=== PATIENT | female | born 1950 | race Hispanic/Latino ===

== ENCOUNTER 2019-03-04 11:32 | Emergency (ER) | payer OTHER ==
[~2019-03-04] VITALS: Ht 165.1 cm; Wt 108.9 kg
--- OUTSIDE RECORDS SUMMARY | 2019-03-04 11:36 | XMS REPORT | Summary of Care ---
Author Author [facility] Organization [facility] Address Unknown Phone Unavailable Care Team Providers Care Galvanizer Name Role Phone Adair Pryor PCP Rx, Pulmonary 34 Reason for Referral * Consult, Test & Treat (Routine) Referred By Contact Referred To Contact Status Reason Specialty Diagnoses / [place] [address] [place] [id number] Pending Orthopedic Diagnoses Surgery Primary osteoarthritis of right knee P rocedures GEL ONE PROC INJ Reason for Visit * Reason Comments Follow Up Right knee Encounter Details Care Team Description Date Type Department Leonidas Azevedo MD [address] [id number] Follow Up (Right knee ) 01/25/2019 Office Visit [facility] Orthopedic Surgery [address] [place] [address]. [address] [place], [place] [address] Allergies No Known Allergiesdocumented as of this encounter (statuses as of 01/25/2019) Medications End Date Status Medication Sig Dispensed Refills Start Date Active Multiple Take by 0 Vitamins-Minerals (WOMENS mouth. 50+ MULTI VITAMIN/MIN OR)Indications: Type II or unspecified type diabetes mellitus with peripheral circulatory disorders, not stated as uncontrolled(250.70), Hypertension, Hyperlipidemia Active Biotin 1000 MCG TABS Take by 0 mouth. Active omeprazole (PRILOSEC) 40 Take 40 mg by 0 MG capsule mouth daily. Active nortriptyline (PAMELOR) every 7 days. 0 10 MG capsule 7 Active metoprolol (TOPROL-XL) 25 TAKE 1 TABLET 90 Tab 3 MG XL tablet BY MOUTH 8 EVERY DAY Active Insulin Pen Needle 31G X Use with 200 Each 5 5 MM MISC insulin 2x 8 daily; DX E11.9 Active metformin (GLUCOPHAGE) TAKE 1 TABLET 180 Tab 2 1000 MG tablet BY MOUTH 8 TWICE A DAY WITH MEALS Active BASAGLAR KWIKPEN 100 Inject 20 45 mL 1 UNIT/ML SOPN Units into 8 the skin at bedtime. Active VICTOZA 18 MG/3ML SOPN INJECT 1.8 MG 3 Pen 3 INTO THE SKIN 8 DAILY. Active levothyroxine (SYNTHROID) TAKE 1 TABLET 90 Tab 1 50 MCG tablet BY MOUTH 8 EVERY DAY IN THE MORNING Active Hyaluronan (HYMOVIS) 24 Inject 3 mL 6 mL 0 MG/3ML injection into the 8 articular space every 7 days. Active Glucose Blood Strips TEST 3 TIMES 300 Strip 2 (ONETOUCH VERIO) A DAY; Dx 9 E11.9 - .curtesy refill - No further refill will be given with our an appointment Active irbesartan-hydrochlorothi TAKE 1 TABLET 90 Tab 3 azide (AVALIDE) 150-12.5 BY MOUTH 9 MG per tabletIndications: EVERY DAY Essential hypertension Active rosuvastatin (CRESTOR) 10 TAKE 1 TABLET 90 Tab 3 MG tabletIndications: BY MOUTH 9 Hyperlipidemia, EVERY DAY unspecified hyperlipidemia type Active amlodipine (NORVASC) 10 TAKE 1 TABLET 90 Tab 3 MG tabletIndications: BY MOUTH 9 Hyperlipidemia, EVERY DAY unspecified hyperlipidemia type Active olmesartan-hydrochlorothi TAKE 1 TABLET 30 Tab 6 azide (BENICAR HCT) BY MOUTH 9 40-12.5 MG per EVERY DAY tabletIndications: Essential hypertension Active erythromycin opth erythromycin 0 (ROMYCIN) ophthalmic 5 mg/gram ointment (0.5 %) eye ointment APPLY 4 TIMES PER DAY FOR 7 DAYS 1CM RIBBON IN AFFECTED EYE Active fluconazole (DIFLUCAN) fluconazole 0 150 MG tablet 150 mg tablet TAKE 1 TABLET ONE DOSE REPEAT DOSE IN 5-7 DAYS Active nystatin-triamcinolone nystatin-tria 0 (MYCOLOG II) cream mcinolone 100,000 unit/g-0.1 % topical cream Active nystatin-triamcinolone nystatin-tria 0 (MYCOLOG) ointment mcinolone 100,000 unit/gram-0.1 % topical ointment APPLY TO AFFECTED AREA TWICE A DAY Active meloxicam (MOBIC) 15 MG meloxicam 15 0 tablet mg tablet documented as of this encounter (statuses as of 01/25/2019) Active Problems Problem Noted Date Complete tear of left rotator cuff 12/01/2016 Complete tear of right rotator cuff 12/01/2016 Dyslipidemia 07/31/2016 Hypothyroidism (acquired) 04/04/2016 Mixed stress and urge urinary incontinence 09/04/2015 Primary osteoarthritis of right knee 07/03/2015 Keratosis seborrheica 03/16/2013 Diabetes mellitus (HCCode) Iron deficiency anemia documented as of this encounter (statuses as of 01/25/2019) Resolved Problems Problem Noted Date Resolved Date Hypertension 07/31/2016 Hyperlipidemia 07/31/2016 documented as of this encounter (statuses as of 01/25/2019) Immunizations Name Administration Dates Next Due Influenza (whole) 01/16/2016, 01/15/2015, 01/30/2014, 02/24/2010 Influenza Quad-PF 01/13/2017 Influenza Quadrivalent 01/25/2018 3YRS+ Pneumococcal 02/21/2016 02/19/2017 Polysaccharide documented as of this encounter Social History Date Tobacco Use Types Packs/Day Years Used Never Smoker Smokeless Tobacco: Never Used Drinks/Week oz/Week Comments Alcohol Use No Sex Assigned at Date Recorded Not on file Industry Job Start Date Occupation Not on file Not on file Not on file Travel End Travel History Travel Start No recent travel history available. documented as of this encounter Last Filed Vital Signs Reading Time Taken Comments Vital Sign - - Blood Pressure - - Pulse - - Temperature - - Respiratory Rate - - Oxygen Saturation - - Inhaled Oxygen Concentration 102.1 kg (225 lb) 01/25/2019 8:23 AM CDT Weight 160 cm (5' 3") 01/25/2019 8:23 AM CDT Height 39.86 01/25/2019 8:23 AM CDT Body Mass Index documented in this encounter Progress Notes * Leonidas Azevedo MD - 01/25/2019 8:00 AM CDT Miladys Arellano is a 68 y.o. female who comes in for follow up re R knee. Know n OA, responded well to last ZURITA, now w recurrent pain. Last ZURITA was Feb 2018, so almost 1 year of response. Prior PT. Prior CSIs. Prev had right knee injection (synvisc one) with inflammat ory response. She understands knee will likely need more tx in future, affecting ADLs / mobili ty more. Father had B TKAs. Past Medical History has a past medical history of Anemia (2010), Diabetes me llitus (HCCode), Diverticulitis of colon (without mention of hemorrhage)(562.11) , Esophageal reflux, GERD (gastroesophageal reflux disease), Hyperlipidemia, Hyp ertension, Hypothyroid, Iron deficiency anemia, and Thyroid disorder. She also h as no past medical history of Abnormal Pap smear of cervix, Anxiety, Asthma, Aut oimmune disease (HCCode), Bleeding disorder (HCCode), Breast cancer (HCCode), Br east lump, Calculus of kidney, Cardiac dysrhythmia, unspecified, Cataract, Cervi marina cancer (HCCode), Circulatory disorder, Cirrhosis (HCCode), Colon cancer (HCC ode), COPD (chronic obstructive pulmonary disease) (HCCode), Crohn's disease (HC Code), Depression, Ear disorder, Glaucoma, Hearing loss, Heart attack (HCCode), Hepatitis, unspecified, Human immunodeficiency virus (HIV) disease (HCCode), Kid luis disease, Migraine, Murmur, cardiac, Osteoarthritis, Osteopenia, Osteoporosis , Peripheral arterial disease (HCCode), Prostate cancer (HCCode), Prostate disor matt, Rectal bleeding, Recurrent UTI, Rheumatoid arthritis(714.0), Seasonal aller gic rhinitis, Seizure disorder (HCCode), Stroke (HCCode), TIA (transient ischemi c attack), Transfusion history, Upper GI bleed, or Varicose veins. Hospitalizations and Surgeries: has a past surgical history that includes hx t ah and bso; hx sterilization (1982); hx hysterectomy w/oophorectomy (1986); and HX Shoulder arthroscopy (Left, 04/22/2017). Review of Systems: Positive for shoulder pain; review of the other 9 systems are noncontributory as related to the patient's chief complaint The patient is alert, conversant, and oriented to person/location/date and time. Knee: Intact, warm, no discoloration Trace effusion 0-0-110 vs 0-0-120 L No pain through ROM Faint crepitation Soft compartments Mild diffuse TTP, max TTP MFC and MJL Intact motor/sens Imaging 4 views knee show varus tricompartmental OA, advanced, progressing Impression/Plan R knee OA I reviewed knee arthritis with the patient. We discussed conservative/nonoperative treatment including: Activity modifications Weight mgment - gave her Dr Blake info and discussed wt loss planning w her Medications Physical therapy and/or home exercise progam Assistive device(s) Injections: corticosteroids, viscosupplementation - will reorder We also discussed surgery Knee arthroplasty explained and good known terminal manager results explained Discussed postop recovery Questions were solicited and answered. Plan: Order ZURITA HEP Wt loss Likely more discussion re TKA in future documented in this encounter Plan of Treatment Order Schedule Name Type Priority Associated Diagnoses 1 Occurrences starting 01/25/2019 until 01/26/2020 GEL ONE PROC INJ Procedures Routine Primary osteoarthritis of right knee Health Maintenance Due Date Last Done Comments TETANUS SHOT (ADULT) 10/11/1966 BMI FOLLOW UP PLAN 10/11/1969 HEPATITIS C SCREENING 10/11/1969 MAMMOGRAM ANNUAL 08/26/2016 08/27/2015, 07/25/2015, 07/17/2015, Additional history exists OSTEOPOROSIS SCREENING 10/11/2016 10/05/2016 PNEUMOVAX >=65 (PPSV23) 10/11/2016 02/21/2016 PREVNAR >=65 (PCV13) 10/11/2016 A1C TESTING EVERY 6 06/15/2018 12/13/2017, 12/08/2016, 02/26/2016, MONTHS Additional history exists FLU VACCINE > 6 MONTHS 11/24/2018 01/25/2018, 01/13/2017, 01/16/2016, Additional history exists ANNUAL DIABETIC FOOT EXAM 12/13/2018 12/13/2017 ANNUAL DIABETIC 12/28/2018 12/28/2017, 10/06/2016, 06/28/2015, RETINOPATHY SCREENING Additional history exists FALL SCREEN 01/26/2020 01/25/2019 COLON CANCER SCREENIN02/20/2021 02/21/2016 COLONOSCOPY documented as of this encounter Results Not on filedocumented in this encounter Visit Diagnoses Diagnosis Primary osteoarthritis of right knee - Primary Primary localized osteoarthrosis, lower leg documented in this encounter Insurance Type Payer Benefit Subscriber ID Effective Phone Address Plan / Dates Group EPO [employer] EPO xxxxxxxxx 2015 [address] [place] -[place] [address] [place] [address] documented as of this encounter
--- OUTSIDE RECORDS SUMMARY | 2019-03-04 11:36 | XMS REPORT ---
Author Author [facility] Address Unknown Phone Unavailable Care Team Providers Care Cat Operator Name Role Phone JOSÉ MIGUEL HOWARD Unavailable Unavailable Problems This patient has no known problems. Allergies, Adverse Reactions, Alerts This patient has no known allergies or adverse reactions. Medications This patient has no known medications. Results Test Description Test Time Test Comments Text Results Atomic Results Result Comments POCT-GLUCOSE METER 2017-04-22 14:45:00 POC-GLUCOSE METER (BEAKER) (test tjua=1986) 166 mg/dL 70-110 TESTED AT [address] [address] POCT-GLUCOSE [id number] 11:01:00* Test Item Value Reference Range Comments POC-GLUCOSE METER (BEAKER) (test gbrv=4413) 213 mg/dL 70-110 TESTED AT [address] [address] POCT-GLUCOSE [id number] 07:48:00* Test Item Value Reference Range Comments POC-GLUCOSE METER (BEAKER) (test iloa=2195) 262 mg/dL 70-110 TESTED AT [address] [address] [id number] 09:49:00* Test Item Value Reference Range Comments SODIUM (BEAKER) (test yjiv=668) 143 meq/L 136-145 POTASSIUM (BEAKER) (test zexf=295) 4.4 meq/L 3.5-5.1 CHLORIDE (BEAKER) (test dxix=937) 104 meq/L 98-107 CO2 (BEAKER) (test zmxj=625) 29 meq/L 22-29 [id number] 09:49:00* Test Item Value Reference Range Comments GLUCOSE RANDOM (BEAKER) (test ndjc=860) 277 mg/dL 70-105 BUN AND [id number] 09:49:00* Test Item Value Reference Range Comments BLOOD UREA NITROGEN (BEAKER) (test ajyh=783) 16 mg/dL 7-21 CREATININE (BEAKER) (test ohiw=411) 0.79 mg/dL 0.57-1.25 EGFR (BEAKER) (test njry=8264) 73 mL/min/1.73 sq m ESTIMATED GFR IS NOT ACCURATE CREATININE CLEARANCE IN PREDICTING GLOMERULAR FILTRATION RATE. ESTIMATED GFR IS NOT APPLICABLE FOR DIALYSIS PATIENTS. [id number] 09:10:00* Test Item Value Reference Range Comments HEMOGLOBIN (BEAKER) (test kcqu=311) 14.4 GM/DL 11.2-15.7 POCT-GLUCOSE [id number] 10:07:00* Test Item Value Reference Range Comments POC-GLUCOSE METER (BEAKER) (test vlvn=7408) 181 mg/dL 70-110 TESTED AT [facility] [address] [place] [address] BASIC METABOLIC [id number] 15:52:00* Test Item Value Reference Range Comments SODIUM (BEAKER) (test lada=641) 142 meq/L 136-145 POTASSIUM (BEAKER) (test karo=317) 4.3 meq/L 3.5-5.1 Specimen slightly hemolyzed CHLORIDE (BEAKER) (test xigp=009) 103 meq/L 98-107 CO2 (BEAKER) (test mdaa=999) 29 meq/L 22-29 BLOOD UREA NITROGEN (BEAKER) (test rurt=272) 18 mg/dL 7-21 CREATININE (BEAKER) (test rqll=074) 0.72 mg/dL 0.57-1.25 Specimen slightly hemolyzed GLUCOSE RANDOM (BEAKER) (test rcnp=929) 129 mg/dL 70-105 CALCIUM (BEAKER) (test ypuq=646) 9.8 mg/dL 8.4-10.2 EGFR (BEAKER) (test gkae=6909) 81 mL/min/1.73 sq m ESTIMATED GFR IS NOT ACCURATE CREATININE CLEARANCE IN PREDICTING GLOMERULAR FILTRATION RATE. ESTIMATED GFR IS NOT APPLICABLE FOR DIALYSIS PATIENTS. [id number] 15:34:00* Test Item Value Reference Range Comments HEMOGLOBIN (BEAKER) (test kkjc=324) 14.5 GM/DL 11.2-15.7
--- OUTSIDE RECORDS SUMMARY | 2019-03-04 11:36 | XMS REPORT | Summary of Care ---
Author Author [facility] Organization [facility] Address Unknown Phone Unavailable Care Team Providers Care Pourer Crane Ladle Name Role Phone Konstantin Adair R PCP Rx, Pulmonary 34 Reason for Referral * Test (Routine) Referred By Contact Referred To Contact Status Reason Specialty Diagnoses / Procedures Shayan Lind MD [address] [place] [id number] E-Auth Not Consult, Test, and Cardiology Diagnoses Needed Treat Diabetes mellitus without complication (HCCode) LOPEZ (dyspnea on exertion) Palpitations Dyslipidemia w/ echo P rocedures EXTENDED HOLTER MONITOR (CONTINUOUS >48) * Radiology Services (Routine) Referred By Contact Referred To Contact Status Reason Specialty Diagnoses / Procedures Shayan Lind MD [address] [place] [phone] E-Auth Not Cardiology Diagnoses Needed Diabetes mellitus without complication (HCCode) LOPEZ (dyspnea on exertion) Palpitations Dyslipidemia w/ monitor P rocedures ECHO, COMPLETE Reason for Visit * Reason Comments Cardiology Follow-up Refill Encounter Details Care Team Description Date Type Department Shayan Lind MD [address] [place] [address] Cardiology Follow-up; Refill 02/09/2019 Office Visit [facility] Cardiology [address] [place] [phone] Allergies No Known Allergiesdocumented as of this encounter (statuses as of 02/09/2019) Medications End Date Status Medication Sig Dispensed [...] MG meloxicam 15 0 tablet mg tablet Active Insulin Aspart (NOVOLOG Inject into 0 SC) the skin. Active VITAMIN D OR Take 2,000 mg 0 by mouth daily. documented as of this encounter (statuses as of 02/09/2019) Active Problems Problem Noted Date Complete tear of left rotator cuff 12/01/2016 Complete tear of right rotator cuff 12/01/2016 Dyslipidemia 07/31/2016 Hypothyroidism (acquired) 04/04/2016 Mixed stress and urge urinary incontinence 09/04/2015 Primary osteoarthritis of right knee 07/03/2015 Keratosis seborrheica 03/16/2013 Diabetes mellitus (HCCode) Iron deficiency anemia documented as of this encounter (statuses as of 02/09/2019) Resolved Problems Problem Noted Date Resolved Date Hypertension 07/31/2016 Hyperlipidemia 07/31/2016 documented as of this encounter (statuses as of 02/09/2019) Immunizations Name Administration Dates Next Due Influenza [...] Signs Reading Time Taken Comments Vital Sign 158/90 02/09/2019 9:28 AM CDT did not take b/p meds this AM Blood Pressure 88 02/09/2019 9:28 AM CDT Pulse - - Temperature 16 02/09/2019 9:28 AM CDT Respiratory Rate 96% 02/09/2019 9:28 AM CDT Oxygen Saturation - - Inhaled Oxygen Concentration 109.3 kg (241 lb) 02/09/2019 9:28 AM CDT Weight 160 cm (5' 3") 02/09/2019 9:28 AM CDT Height 42.69 02/09/2019 9:28 AM CDT Body Mass Index documented in this encounter Progress Notes * Shayan Lind MD - 02/09/2019 9:30 AM CDT Chief Complaint Cardiology Follow-up and Refill History of Presenting Illness Miladys Arellano is a 68 y.o. female with several medical issues who returns fo follow-up evaluation. The patient is diabetic. She states that her hemoglobi n A1c's have been in the 7 range. She does have problems with weight control. She is currently 5 feet 3 inches tall and weighs 241 pounds. She did have an ep isode of palpitations which occurred at rest. The episode was approximately 20 minutes. The patient did not faint. She did not have chest pain suggestive of ischemia. She is relatively physically active and works full-time. The patient does not smoke. She denies palpitations. [facility] but she did not take her medications. The patient currently is managed with irbesartan HCTZ (150/12.5). Additionally, she is on metoprolol. [facility] patient has no history of DVT or hyperthyroidism (per she is on low dose Synt hroid at 50 g per day).. Review of Systems ROS Past Medical History Past Medical History: Diagnosis Date Anemia 2011 Diabetes mellitus (HCCode) Diverticulitis of colon (without mention of hemorrhage)(562.11) Esophageal reflux GERD (gastroesophageal reflux disease) Hyperlipidemia Hypertension Hypothyroid Iron deficiency anemia Thyroid disorder Past Surgical History Past Surgical History: Procedure Laterality Date HX HYSTERECTOMY W/OOPHORECTOMY 1986 HX SHOULDER ARTHROSCOPY Left 04/22/2017 Left shoulder RCR, BT HX STERILIZATION 1982 HX BRYSON AND BSO fibroids Family History Family History Problem Relation Name Age of Onset Skin Cancer Neg Hx Current Outpatient Medications Current Outpatient Medications Medication Sig Dispense Refill amlodipine (NORVASC) 10 MG tablet TAKE 1 TABLET BY MOUTH EVERY DAY 90 Tab 3 BASAGLAR KWIKPEN 100 UNIT/ML SOPN Inject 20 Units into the skin at bedtime. 45 mL 1 Biotin 1000 MCG TABS Take by mouth. erythromycin opth (ROMYCIN) ophthalmic ointment erythromycin 5 mg/gram (0.5 %) eye ointment APPLY 4 TIMES PER DAY FOR 7 DAYS 1CM RIBBON IN AFFECTED EYE fluconazole (DIFLUCAN) 150 MG tablet fluconazole 150 mg tablet TAKE 1 TABLET ONE DOSE REPEAT DOSE IN 5-7 DAYS Glucose Blood Strips (OmbitronTOUCH VERIO) TEST 3 TIMES A DAY; Dx E11.9 - .curtes y refill - No further refill will be given with our an appointment 300 Strip 2 Hyaluronan (HYMOVIS) 24 MG/3ML injection Inject 3 mL into the articular spac e every 7 days. 6 mL 0 Insulin Aspart (NOVOLOG SC) Inject into the skin. Insulin Pen Needle 31G X 5 MM MISC Use with insulin 2x daily; DX E11.9 200 E ach 5 irbesartan-hydrochlorothiazide (AVALIDE) 150-12.5 MG per tablet TAKE 1 TABLE T BY MOUTH EVERY DAY (Patient not taking: Reported on 02/09/2019) 90 Tab 3 levothyroxine (SYNTHROID) 50 MCG tablet TAKE 1 TABLET BY MOUTH EVERY DAY IN THE MORNING 90 Tab 1 meloxicam (MOBIC) 15 MG tablet meloxicam 15 mg tablet metformin (GLUCOPHAGE) 1000 MG tablet TAKE 1 TABLET BY MOUTH TWICE A DAY WIT H MEALS 180 Tab 2 metoprolol (TOPROL-XL) 25 MG XL tablet TAKE 1 TABLET BY MOUTH EVERY DAY 90 T ab 3 Multiple Vitamins-Minerals (WOMENS 50+ MULTI VITAMIN/MIN OR) Take by mouth. nortriptyline (PAMELOR) 10 MG capsule every 7 days. nystatin-triamcinolone (MYCOLOG II) cream nystatin-triamcinolone 100,000 uni t/g-0.1 % topical cream nystatin-triamcinolone (MYCOLOG) ointment nystatin-triamcinolone 100,000 uni t/gram-0.1 % topical ointment APPLY TO AFFECTED AREA TWICE A DAY olmesartan-hydrochlorothiazide (BENICAR HCT) 40-12.5 MG per tablet TAKE 1 TA BLET BY MOUTH EVERY DAY 30 Tab 6 omeprazole (PRILOSEC) 40 MG capsule Take 40 mg by mouth daily. rosuvastatin (CRESTOR) 10 MG tablet TAKE 1 TABLET BY MOUTH EVERY DAY 90 Tab 3 VICTOZA 18 MG/3ML SOPN INJECT 1.8 MG INTO THE SKIN DAILY. (Patient not yovanny johnson: Reported on 02/09/2019) 3 Pen 3 VITAMIN D OR Take 2,000 mg by mouth daily. No current facility-administered medications for this visit. Allergies No Known Allergies Social History Social History Tobacco Use Smoking Status Never Smoker Smokeless Tobacco Never Used Social History Substance and Sexual Activity Alcohol Use No Social History Substance and Sexual Activity Drug Use No Social History Substance and Sexual Activity Sexual Activity Never Physical Examination Vitals: Vital Signs Height: 5' 3" (160 cm) Weight - Scale: 241 lb (109.3 kg) Pulse: 88 Respirations: 16 BP: 158/90(did not take b/p meds this AM) Physical Exam Constitutional: She appears healthy. No distress. HENT: Nose: Nose normal. No nasal discharge. Eyes: Conjunctivae are normal. Neck: Neck supple. No JVD present. Cardiovascular: Normal rate, regular rhythm, S1 normal and S2 normal. No extras ystoles are present. PMI is not displaced. Exam reveals no gallop, no distant he art sounds, no friction rub, no midsystolic click, no opening snap and no decrea sed pulses. No murmur heard. Pulses: Radial pulses are 3+ on the right side, and 3+ on the left side. Pulmonary/Chest: Effort normal and breath sounds normal. No stridor. She has no wheezes. She has no rales. She exhibits no tenderness. Abdominal: Soft. Bowel sounds are normal. She exhibits no distension and no mass . There is no hepatomegaly. There is no tenderness. Musculoskeletal: She exhibits no edema, tenderness or deformity. Neurological: She is alert and oriented to person, place, and time. Skin: Skin is warm and dry. Nails show no clubbing. Laboratory Data Lab Results Component Value Date WBC 4.7 07/26/2015 HGB 14.4 04/15/2017 HCT 41.6 07/26/2015 MCV 87.4 07/26/2015 PLT 232 07/26/2015 Lab Results Component Value Date NA 143 04/15/2017 Lab Results Component Value Date K 4.4 04/15/2017 Lab Results Component Value Date BUN 16 04/15/2017 Lab Results Component Value Date CREATININE 0.79 04/15/2017 Lab Results Component Value Date ALT 46 (H) 02/26/2016 AST 38 02/26/2016 ALKPHOS 111 02/26/2016 BILITOT 0.4 02/26/2016 Lab Results Component Value Date CHOL 186 02/26/2016 HDL 55 02/26/2016 LDLCALC 98 02/26/2016 TRIG 167 (H) 02/26/2016 No results found for: BNP Assessment and Plan: The patient is a 68-year-old with a history of hypertension , diabetes, hypothyroidism who presents with palpitations and shortness of breat h. She will have an echocardiogram and extended monitor. I will contact her wi th the results documented in this encounter Plan of Treatment Care Team Description Date Type Specialty 02/10/2019 Ancillary Cardiology Procedure 02/10/2019 Procedure Cardiology Visit-Tech Performed Order Schedule Name Type Priority Associated Diagnoses Expected: 02/09/2019, Expires: 08/11/2019 ECHO, COMPLETE Cardiac Routine Diabetes mellitus without Services complication (HCCode) LOPEZ (dyspnea on exertion) Palpitations Dyslipidemia 1 Occurrences starting 02/09/2019 until 02/10/2020 EXTENDED HOLTER MONITOR ECG Routine Diabetes mellitus without (CONTINUOUS >48) complication (HCCode) LOPEZ (dyspnea on exertion) Palpitations Dyslipidemia Health Maintenance Due Date Last Done Comments [...] filedocumented in this encounter Visit Diagnoses Diagnosis Palpitations - Primary Diabetes mellitus without complication (HCCode) Type II or unspecified type diabetes mellitus without mention of complication, not stated as uncontrolled LOPEZ (dyspnea on exertion) Other dyspnea and respiratory abnormality Dyslipidemia Other and unspecified hyperlipidemia documented in this encounter Insurance Type Payer Benefit Subscriber ID Effective Phone Address Plan / Dates Group PPO CARDIOVASCULAR CARE [facility] - xxxxxxxxx Effective 20 PROVIDERS CARDIOVASC for all [facility] [address] [place] [address] documented as of this encounter
[2019-03-04] MEDS ORDERED: ASPIRIN 81 MG CHEW TAB PO ONE (12:00)
[2019-03-04] MEDS ORDERED: LIDOCAINE VISC 2% SOLN 15 ML UDC PO ONE (12:00)
[2019-03-04] MEDS ORDERED: MAGNESIUM/ALUMINUM/SIMETHICONE 30 ML UDC PO ONE (12:00)
[2019-03-04 12:10] LABS: BASOPHILS # (AUTO) 0.1 (0.0-0.1); BASOPHILS % 1.1 % (0.0-1.0); EOSINOPHILS # (AUTO) 0.3 (0.0-0.4); HEMATOCRIT 40.9 % (34.2-44.1); HEMOGLOBIN 13.9 g/dL (12.0-16.0); LYMPHOCYTES # (AUTO) 2.2 (1.0-3.2); LYMPHOCYTES % 32.7 % (18.0-39.1); MEAN CORPUSCULAR HEMOGLOBIN 29.4 pg (28-32); MEAN CORPUSCULAR VOLUME 86.7 fL (81-99); MONOCYTES # (AUTO) 0.6 (0.2-0.8); MONOCYTES % 8.5 % (4.4-11.3); NEUTROPHILS # (AUTO) 3.4 (2.1-6.9); NEUTROPHILS % 52.2 % (38.7-80.0); PLATELET COUNT 304 x10e3/uL (140-360); RED BLOOD COUNT 4.72 x10e6/uL (3.6-5.1); RED CELL DISTRIBUTION WIDTH 12.8 % (11.7-14.4)
[2019-03-04 12:32] LABS: ALANINE AMINOTRANSFERASE 31 IU/L (0-55); ALBUMIN 4.3 g/dL (3.5-5.0); ALBUMIN/GLOBULIN RATIO 1.2 (0.8-2.0); ALKALINE PHOSPHATASE 89 IU/L (40-150); AMYLASE 25 U/L (25-125); ANION GAP 15.7 mmol/L (8-16); BLOOD UREA NITROGEN 10 mg/dL (7-26); BUN/CREATININE RATIO 14 (6-25); CALCIUM 9.9 mg/dL (8.4-10.2); CARBON DIOXIDE 25 mmol/L (22-29); CHLORIDE 104 mmol/L (98-107); CREATINE KINASE 179 IU/L (29-168); EST GLOMERULAR FILTRATION RATE > 60 ML/MIN (60-); GLUCOSE 101 mg/dL (74-118); LIPASE 6 U/L (8-78); POTASSIUM 3.7 mmol/L (3.5-5.1); SODIUM 141 mmol/L (136-145)
[2019-03-04] MEDS ORDERED: MORPHINE SULFATE 2 MG/ML SYR 1ML IV ONE (14:00)
[2019-03-04] MEDS ORDERED: ONDANSETRON HCL INJ 2MG/ML 2ML 2 MG/ML VIAL IV ONE (14:00)
--- NOTE | 2019-03-04 14:34 | Diagnostic Imaging Report ---
EXAM: CT Abdomen and Pelvis WITH contrast INDICATION: ^ruq pain ^[id number] ^[id number] COMPARISON: None. TECHNIQUE: Abdomen and pelvis were scanned utilizing a multidetector helical scanner from the lung base to the pubic symphysis after administration of IV contrast. Coronal and sagittal reformations were obtained. Dose modulation, iterative reconstruction, and/or weight based adjustment of the mA/kV was utilized to reduce the radiation dose to as low as reasonably achievable. Routine protocol was performed. Scan was performed when during portal venous phase. IV CONTRAST: 100 mL of Isovue-370 ORAL CONTRAST: Water COMPLICATIONS: None RADIATION DOSE: Total DLP: 868.34 mGy*cm Estimated effective dose: (DLP x 0.015 x size factor) mSv CTDIvol has been reviewed. It is below the limits set by the Radiation Protocol Committee (RPC). FINDINGS: LINES and TUBES: None. LOWER THORAX: Unremarkable HEPATOBILIARY: Hepatomegaly with hepatic steatosis. No focal hepatic lesions. No biliary ductal dilation. GALLBLADDER: No radio-opaque stones or sludge. No wall thickening. SPLEEN: No splenomegaly. PANCREAS: No focal masses or ductal dilatation. ADRENALS: No adrenal nodules KIDNEYS/URETERS: Kidneys enhance symmetrically. No hydronephrosis. No cystic or solid mass lesions. No stones. GI TRACT: No abnormal distention, wall thickening, or evidence of bowel obstruction. There are diverticula within the colon without evidence of diverticulitis. Appendix is normal. PELVIC ORGANS/BLADDER: Hysterectomy. Bladder is unremarkable. LYMPH NODES: No lymphadenopathy. VESSELS: There is mild atherosclerotic disease in the aorta and major arterial branches. Tortuous abdominal aorta. PERITONEUM / RETROPERITONEUM: No free air or fluid. BONES: Degenerative changes of spine. No acute osseous abnormality. SOFT TISSUES: Small fat-containing umbilical hernia. IMPRESSION: 1. No acute inflammatory process in the abdomen/pelvis. 2. Colonic diverticulosis without evidence of diverticulitis. 3. Enlarged steatotic liver. Signed by: Dr. Ulises Yu MD on 03/04/2019 2:31 PM
[2019-03-04] MEDS ORDERED: BELLADONNA ALK/PHENOBARBITAL 5 ML UDC PO SCH (15:00)
[2019-03-04 15:20] VITALS: BP 132/76
[2019-03-04] MEDS ORDERED: SODIUM CHLORIDE 0.9% 50ML 50 ML ONE (18:10)
[2019-03-04] MEDS ORDERED: IOPAMIDOL 370 MG/ML 200 ML INFUS..BTL INJ ONE (18:10)
== END 2019-03-04 15:27 | disposition home or self-care (01) ==
LOC: ER 11:32
DX: R10.11 Right upper quadrant pain (principal); R11.0 Nausea; I10 Essential (primary) hypertension; E11.9 Type 2 diabetes mellitus without complications; E03.9 Hypothyroidism, unspecified; E78.5 Hyperlipidemia, unspecified
CPT/HCPCS: 36415; 74177; 80053; 82150; 82550; 82553; 83690; 84484; 85025; 93005; 99284; J2270; J2405; Q9967

== ENCOUNTER 2019-03-12 09:11 | Inpatient (IN) | payer OTHER, MEDICARE ==
[~2019-03-12] VITALS: Ht 165.1 cm; Wt 108.9 kg
[2019-03-12] MEDS ORDERED: SODIUM CHLORIDE 0.9% 1000ML 1,000 ML IV STA ×3 (09:28→10:22)
[2019-03-12] MEDS ORDERED: ONDANSETRON HCL INJ 2MG/ML 2ML 2 MG/ML VIAL IV NR (09:30)
[2019-03-12] MEDS ORDERED: MORPHINE SULFATE INJ 4 MG/ML INJ 1ML IV NR (09:45)
[2019-03-12] MEDS ORDERED: KETOROLAC TROMETHAMINE 30 MG/ML VIAL IV NR (09:45)
[2019-03-12] MEDS ORDERED: SODIUM CHLORIDE 0.9% 1000ML 1,000 ML ONE ×2 (09:49→12:05)
[2019-03-12 09:59] LABS: BASOPHILS % 0.3 % (0.0-1.0); EOSINOPHILS # (AUTO) 0.1 (0.0-0.4); EOSINOPHILS % 1.3 % (0.0-6.0); HEMATOCRIT 38.1 % (34.2-44.1); HEMOGLOBIN 12.9 g/dL (12.0-16.0); LYMPHOCYTES # (AUTO) 0.4 (1.0-3.2); LYMPHOCYTES % 5.3 % (18.0-39.1); MEAN CORPUSCULAR HEMOGLOBIN 29.6 pg (28-32); MEAN CORPUSCULAR HGB CONC 33.9 g/dL (31-35); MEAN CORPUSCULAR VOLUME 87.4 fL (81-99); MONOCYTES # (AUTO) 0.3 (0.2-0.8); MONOCYTES % 3.3 % (4.4-11.3); NEUTROPHILS # (AUTO) 6.8 (2.1-6.9); NEUTROPHILS % 89.4 % (38.7-80.0); PLATELET COUNT 203 x10e3/uL (140-360); RED BLOOD COUNT 4.36 x10e6/uL (3.6-5.1)
[2019-03-12] MEDS ORDERED: ACETAMINOPHEN 1000 MG/100 ML IV NR (10:00)
[2019-03-12] MEDS ORDERED: PIPER-TAZ 3.375 GM 50 ML IV ONE (10:00)
[2019-03-12] MEDS ORDERED: IBUPROFEN IV NR (10:00)
[2019-03-12 10:08] LABS: INR 0.9; PROTHROMBIN TIME 12.6 seconds (11.9-14.5)
[2019-03-12 10:09] LABS: PARTIAL THROMBOPLASTIN TIME 24.2 seconds (23.8-35.5)
--- NOTE | 2019-03-12 10:09 | NUR ---
PT PLACED ON BEDPAN TO VOID. PT STATED NEEDING TO VOID, BUT COULDNT. WILL TRY LATER.
[2019-03-12 10:19] LABS: INFLUENZAE A&B ANTIGEN (RAPID) NEGATIVE (NEGATIVE); STREPTOCOCCUS GRP A ANTIGEN NEGATIVE (NEGATIVE)
[2019-03-12 10:19] LABS: ALANINE AMINOTRANSFERASE 25 IU/L (0-55); ALBUMIN 3.7 g/dL (3.5-5.0); ALBUMIN/GLOBULIN RATIO 1.1 (0.8-2.0); ALKALINE PHOSPHATASE 88 IU/L (40-150); ANION GAP 18.7 mmol/L (8-16); BLOOD UREA NITROGEN 13 mg/dL (7-26); BUN/CREATININE RATIO 17 (6-25); CARBON DIOXIDE 21 mmol/L (22-29); CHLORIDE 103 mmol/L (98-107); CREATINE KINASE 92 IU/L (29-168); CREATININE, SERUM 0.78 mg/dL (0.57-1.11); EST GLOMERULAR FILTRATION RATE > 60 ML/MIN (60-); GLUCOSE 221 mg/dL (74-118); POTASSIUM 3.7 mmol/L (3.5-5.1); SODIUM 139 mmol/L (136-145)
--- NOTE | 2019-03-12 10:27 | NUR ---
GREEN SEPSIS SHEET ON CHART.
--- NOTE | 2019-03-12 10:30 | NUR ---
SCIENCE INTERN AT BEDSIDE
--- NOTE | 2019-03-12 10:30 | NUR ---
PATIENT C/O OF NASAL STUFFINESS AND SHE CAN'T BREATH THROUGH HER NOSE AND SHE USUALLY USES HER FLONASE ON A DAILY BASIS. SAT RANGES FROM 88-96%. PLACED ON 2L/NC PATIENT ATTEMPTED MULTIPLE TIMES ON BEDPAN TO GIVE URINE SAMPLE. UNSUCCEFUL. OBTAINED URINE VIA STRAIGHT CATH
[2019-03-12 10:39] LABS: AMYLASE 11 U/L (25-125); LIPASE < 4 U/L (8-78)
[2019-03-12 10:46] LABS: BILIRUBIN,URINE NEGATIVE (NEGATIVE); CLARITY,URINE SL CLOUDY (CLEAR); COLOR,URINE YELLOW (YELLOW); KETONES,URINE NEGATIVE (NEGATIVE); LEUKOCYTE ESTERASE ,URINE NEGATIVE (NEGATIVE); NITRITE,URINE POSITIVE (NEGATIVE); PROTEIN,URINE DIPSTICK 2+ (NEGATIVE); URINE UROBILINOGEN 0.2 mg/dL (0.2 - 1)
--- NOTE | 2019-03-12 10:49 | Diagnostic Imaging Report ---
Examination: Single AP view of the chest. COMPARISON: CT abdomen and pelvis 03/04/2019 INDICATION: Fever DISCUSSION: The lungs are well-inflated and without focal consolidation, pleural effusion, or pneumothorax. Stable cardiomediastinal contour with tortuosity of the thoracic aorta and prominence of the central pulmonary vasculature. No acute osseous abnormality. IMPRESSION: Enlargement of the central pulmonary vasculature may indicate pulmonary hypertension. No acute cardiopulmonary abnormality. Signed by: Dr. Rancho Sifuentes M.D. on 03/12/2019 10:45 AM
[2019-03-12 10:57] LABS: BACTERIA,URINE MANY /HPF; EPITHELIAL CELLS,URINE FEW /LPF; MUCUS,URINE FEW (RARE); RBC,URINE 0-5 /HPF (0-5)
--- NOTE | 2019-03-12 11:06 | Diagnostic Imaging Report ---
EXAMINATION: Right upper quadrant ultrasound CLINICAL INDICATION: Abdominal pain COMPARISON: CT abdomen and pelvis 03/04/2019 DISCUSSION: Transverse and longitudinal images of the right upper quadrant were obtained. The liver is increased in size measuring 22.8centimeters in length in the right midclavicular line and shows increased echogenicity. No focal masses are seen in the liver. There is no intrahepatic biliary dilatation. The common bile duct measures 0.4 cm in caliber.. The main portal vein is normal in caliber for liver size and measures 1.5 cm with normal hepatopetal flow. The gallbladder is normal in appearance without stones, wall thickening or pericholecystic fluid. Small amount of echogenic sludge in the gallbladder fundus. The sonographic Duque's sign is negative. The visualized portions of the pancreatic body are unremarkable. The right kidney measures 12.6 centimeters in length. There is normal renal cortical echogenicity and no hydronephrosis, mass or shadowing calculi. Aorta is nonaneurysmal. IVC is patent. No free fluid is seen. IMPRESSION: Gallbladder sludge without cholelithiasis or sonographic evidence of acute cholecystitis. Hepatomegaly with hepatic steatosis. Signed by: Dr. Rancho Sifuentes M.D. on 03/12/2019 11:03 AM
--- NOTE | 2019-03-12 11:15 | NUR ---
EARLY CHILDHOOD AT BEDSIDE DRAWING LACTIC ACID 2ND
--- NOTE | 2019-03-12 11:21 | NUR ---
DR. WILCOX SPEAKING WITH DR. WAGNER REGARDING ADMISSION FOR PATIENT
[2019-03-12] MEDS ORDERED: SODIUM CHLORIDE 0.9% 1000ML 1,000 ML IV ONE (11:45)
--- NOTE | 2019-03-12 11:57 | NUR ---
DR. WILCOX AT BEDSIDE UPDATED PATIENT ON RESULTS
[2019-03-12] MEDS: PIPER-TAZ 3.375 GM / NS 50ML IV SCH ×2 (12:00→17:50)
[2019-03-12] MEDS ORDERED: VITAMIN B-121000 MCG PO (12:14)
[2019-03-12] MEDS ORDERED: AMLODIPINE BESY10 MG PO (12:14)
[2019-03-12] MEDS ORDERED: CRESTOR10 MG PO (12:14)
[2019-03-12] MEDS ORDERED: NOVOLOG100 UNITS1 (12:14)
[2019-03-12] MEDS ORDERED: NORTRIPTYLINE H10 MG PO (12:14)
[2019-03-12] MEDS ORDERED: METFORMIN HCL500 MG PO (12:14)
[2019-03-12] MEDS ORDERED: AVALIDE 150-121 EACH PO (12:14)
[2019-03-12] MEDS ORDERED: NOVOLOG100 UNIT/1 SQ (12:14)
[2019-03-12] MEDS ORDERED: BIOTIN300 MCG PO (12:14)
[2019-03-12] MEDS ORDERED: BASAGLAR K100 UNIT/1 SQ (12:14)
[2019-03-12] MEDS ORDERED: WOMEN'S DAILY1 EAC2 PO (12:14)
[2019-03-12] MEDS ORDERED: METOPROLOL SUCC25 MG PO (12:14)
[2019-03-12] MEDS ORDERED: LEVOTHYROXINE50 MCG PO (12:14)
[2019-03-12] MEDS ORDERED: OMEPRAZOLE40 MG PO (12:14)
--- NOTE | 2019-03-12 12:18 | NUR ---
RECEIVED PATIENT FROM ER. PATIENT A/O X3, EVEN RESPIRATIONS ON 2LNC. LUNG SOUNDS CLEAR TO AUSCULTATION. BOWEL SOUNDS PRESENT. PATIENT AMBULATES INDEPENDENTLY. RIGHT FA 20 gauge IV WITH NS @ 100 CC/HR. LEFT HAND 22 GAUGE IV SL. ABDOMINAL PAIN 3/10 PAIN MEDICATION AVAILABLE PRN. ORIENTED PATIENT TO ROOM AND CALL LIGHT. BED LOW, WHEELS LOCKED, SIDE RAILS X2. CALL LIGHT IN REACH WILL CONTINUE TO MONITOR PATIENT.
[2019-03-12 13:04] VITALS: BP 116/56
[2019-03-12 13:13] VITALS: BP 116/56
[2019-03-12] MEDS ORDERED: PNEUMOCOCCAL VACCINE POLYVALENT 23 MCG/0.5 ML VIAL IM SCH (13:37)
[2019-03-12 16:16] VITALS: BP 96/55
[2019-03-12] MEDS: IBUPROFEN 800MG/ 250ML 800 MG in SODIUM CHLORIDE 0.9% 250ML 250 ML IV PRN (16:59)
--- NOTE | 2019-03-12 17:07 | NUR ---
NOTIFIED W[employer] UTILITY WORKER [employer] OF PATIENT COMPLAINT OF NASAL CONGESTION. NEW ORDER FOR FLONASE NASAL SPRAY, 2 SPRAYS DAILY. NEW ORDER IMPLEMENTED.
[2019-03-12] MEDS: FLUTICASONE PROPIONATE NASAL SPRAY NS SCH (17:49)
[2019-03-12] MEDS ORDERED: ACETAMINOPHEN 1000 MG/100 ML IV PRN (19:15)
[2019-03-12] MEDS ORDERED: HYDRALAZINE HCL 20 MG/ML VIAL IV PRN (19:15)
[2019-03-12 20:28] VITALS: BP 125/59
[2019-03-12] MEDS: METRONIDAZOLE 500MG/NS 100ML 100 ML IV SCH (21:08)
[2019-03-12] MEDS: ACETAMINOPHEN 1000 MG/100 ML IV PRN (23:40)
[2019-03-13] VITALS (8 sets, daily range): BP systolic 130–153; BP diastolic 61–73
[2019-03-13 03:19] LABS: BASOPHILS % 0.4 % (0.0-1.0); EOSINOPHILS % 0.1 % (0.0-6.0); HEMATOCRIT 31.5 % (34.2-44.1); HEMOGLOBIN 10.5 g/dL (12.0-16.0); LYMPHOCYTES # (AUTO) 0.7 (1.0-3.2); LYMPHOCYTES % 9.3 % (18.0-39.1); MEAN CORPUSCULAR HEMOGLOBIN 29.4 pg (28-32); MEAN CORPUSCULAR HGB CONC 33.3 g/dL (31-35); MEAN CORPUSCULAR VOLUME 88.2 fL (81-99); MONOCYTES # (AUTO) 0.8 (0.2-0.8); MONOCYTES % 10.7 % (4.4-11.3); NEUTROPHILS # (AUTO) 5.9 (2.1-6.9); NEUTROPHILS % 79.1 % (38.7-80.0); PLATELET COUNT 168 x10e3/uL (140-360); RED BLOOD COUNT 3.57 x10e6/uL (3.6-5.1); RED CELL DISTRIBUTION WIDTH 13.3 % (11.7-14.4)
[2019-03-13 03:38] LABS: ALANINE AMINOTRANSFERASE 39 IU/L (0-55); ALBUMIN 2.9 g/dL (3.5-5.0); ALKALINE PHOSPHATASE 80 IU/L (40-150); ANION GAP 12.2 mmol/L (8-16); BILIRUBIN,DIRECT 0.4 mg/dL (0.0-0.5); BLOOD UREA NITROGEN 10 mg/dL (7-26); BUN/CREATININE RATIO 14 (6-25); CALCIUM 8.1 mg/dL (8.4-10.2); CARBON DIOXIDE 24 mmol/L (22-29); CHLORIDE 105 mmol/L (98-107); CHOL/HDL RATIO 3.8 (3.0-3.6); CHOLESTEROL 123 MD/DL (0-199); CREATININE, SERUM 0.74 mg/dL (0.57-1.11); EST GLOMERULAR FILTRATION RATE > 60 ML/MIN (60-); GLUCOSE 179 mg/dL (74-118); HDL CHOLESTEROL 32 MG/DL (40-60); LDL CHOLESTEROL 60 MG/DL (60-130); POTASSIUM 3.2 mmol/L (3.5-5.1); SODIUM 138 mmol/L (136-145); TRIGLYCERIDES 155 MG/DL (0-149)
[2019-03-13 03:42] LABS: LIPASE < 4 U/L (8-78)
[2019-03-13 03:57] LABS: THYROID STIMULATING HORMONE 1.629 uIU/mL (0.350-4.940)
[2019-03-13] MEDS: PIPER-TAZ 3.375 GM / NS 50ML IV SCH ×4 (05:26→17:59)
--- NOTE | 2019-03-13 05:40 | NUR ---
NOTIFIED WINDY WATERS NP, REGARDING POSITIVE BLOOD CULTURES. NO NEW ORDER.
[2019-03-13] MEDS ORDERED: POTASSIUM CHLORIDE 20MEQ/100ML 200 ML IV ONE (06:00)
[2019-03-13] MEDS: METRONIDAZOLE 500MG/NS 100ML 100 ML IV SCH ×3 (06:08→22:00)
[2019-03-13] MEDS ORDERED: ALBUTEROL/IPRATROPIUM 3 ML NEB NEB PRN (06:45)
[2019-03-13] MEDS ORDERED: BENZONATATE 100 MG CAP PO PRN (06:45)
[2019-03-13] MEDS: SODIUM CHLORIDE 0.9% 1000ML 1,000 ML IV SCH ×2 (07:16→17:59)
[2019-03-13] MEDS: FAMOTIDINE 20 MG/2 ML VIAL IV SCH ×2 (09:04→17:24)
[2019-03-13] MEDS: FLUTICASONE PROPIONATE NASAL SPRAY NS SCH (09:04)
[2019-03-13] MEDS: ONDANSETRON HCL INJ 2MG/ML 2ML 2 MG/ML VIAL IV PRN (09:11)
[2019-03-13] MEDS: MORPHINE SULFATE INJ 4 MG/ML INJ 1ML IV PRN (09:11)
[2019-03-13] MEDS: ACETAMINOPHEN 1000 MG/100 ML IV PRN ×2 (12:21→18:30)
--- NOTE | 2019-03-13 18:00 | NUR ---
Dr.J. Boothe aware of intermittent fevers.
--- NOTE | 2019-03-13 18:17 | Diagnostic Imaging Report ---
Hepatobiliary Scan with Gallbladder Ejection Fraction Clinical information: RUQ abdominal pain Technique: Following intravenous administration of 6.0 millicuries of Tc-99m mebrofenin, dynamic images of the abdomen in the anterior projection were obtained through 24 minutes. Sincalide (CCK analog) 2.2 micrograms was administered intravenously over 30 minutes with additional imaging for determination of gallbladder ejection fraction. Discussion: Perfusion of the liver is normal. Extraction of tracer by the liver parenchyma is normal. Tracer appears promptly within the biliary tract. The gallbladder begins to fill at 9 minutes post injection of tracer and fills adequately. Tracer is seen in the small bowel during the sincalide infusion. There is no contractile response by the gallbladder to the pharmacologic dose of sincalide. No emptying of the gallbladder occurs during the 30 minute infusion. Impression: 1. Filling of the gallbladder excludes acute cystic duct obstruction/acute cholecystitis. 2. The gallbladder ejection fraction is undefined as there is no emptying of the gallbladder during the infusion of sincalide. This absence of a contractile response to sincalide supports the clinical diagnosis of chronic cholecystitis/gallbladder dyskinesia. Signed by: Dr. Anni Hartman M.D. on 03/13/2019 6:13 PM
--- NOTE | 2019-03-13 18:30 | NUR ---
Resting in bed, side rails upx2, call light within reach. AAOX4 to time, person, place, situation. Respirations even and unlabored. c/o headache. PRN IV acetaminophen given. Report to be given to oncoming nurse of patient's status.
--- NOTE | 2019-03-13 19:05 | NUR ---
Completed rounding with morning nurse. Pt alert and orient to name. Pt lying in bed HOB 45 degrees. Denies pain at this time. Will continue to monitor.
--- NOTE | 2019-03-13 19:18 | NUR ---
Paged to notify of HIDA scan results.
--- NOTE | 2019-03-13 19:20 | NUR ---
Read HIDA scan results to Dr. Kailyn Boothe, no further orders.
[2019-03-14] VITALS (8 sets, daily range): BP systolic 134–160; BP diastolic 66–78
[2019-03-14 05:17] LABS: BASOPHILS % 0.2 % (0.0-1.0); EOSINOPHILS # (AUTO) 0.1 (0.0-0.4); EOSINOPHILS % 1.2 % (0.0-6.0); HEMATOCRIT 34.2 % (34.2-44.1); HEMOGLOBIN 11.3 g/dL (12.0-16.0); LYMPHOCYTES # (AUTO) 0.6 (1.0-3.2); LYMPHOCYTES % 11.6 % (18.0-39.1); MEAN CORPUSCULAR HEMOGLOBIN 29.2 pg (28-32); MEAN CORPUSCULAR VOLUME 88.4 fL (81-99); MONOCYTES # (AUTO) 0.5 (0.2-0.8); MONOCYTES % 10.5 % (4.4-11.3); NEUTROPHILS # (AUTO) 3.9 (2.1-6.9); NEUTROPHILS % 76.1 % (38.7-80.0); PLATELET COUNT 161 x10e3/uL (140-360); RED BLOOD COUNT 3.87 x10e6/uL (3.6-5.1); RED CELL DISTRIBUTION WIDTH 13.1 % (11.7-14.4)
[2019-03-14 05:34] LABS: ANION GAP 12.3 mmol/L (8-16); BLOOD UREA NITROGEN 9 mg/dL (7-26); BUN/CREATININE RATIO 14 (6-25); CALCIUM 8.9 mg/dL (8.4-10.2); CARBON DIOXIDE 27 mmol/L (22-29); CHLORIDE 104 mmol/L (98-107); CREATININE, SERUM 0.63 mg/dL (0.57-1.11); EST GLOMERULAR FILTRATION RATE > 60 ML/MIN (60-); GLUCOSE 180 mg/dL (74-118); POTASSIUM 3.3 mmol/L (3.5-5.1); SODIUM 140 mmol/L (136-145)
[2019-03-14] MEDS: METRONIDAZOLE 500MG/NS 100ML 100 ML IV SCH ×3 (05:40→22:00)
[2019-03-14] MEDS: PIPER-TAZ 3.375 GM / NS 50ML IV SCH ×4 (06:00→17:20)
--- NOTE | 2019-03-14 06:45 | NUR ---
Rounding done with morning nurse. Pt lying in bed HOB 30 degrees. c/o of mild abd pain. Morning nurse stated will medicate Pt. No acute distress noted.
[2019-03-14] MEDS: MORPHINE SULFATE INJ 4 MG/ML INJ 1ML IV PRN ×2 (07:59→14:27)
[2019-03-14] MEDS: ONDANSETRON HCL INJ 2MG/ML 2ML 2 MG/ML VIAL IV PRN ×2 (07:59→13:33)
[2019-03-14] MEDS: FLUTICASONE PROPIONATE NASAL SPRAY NS SCH (07:59)
[2019-03-14] MEDS: FAMOTIDINE 20 MG/2 ML VIAL IV SCH ×2 (07:59→17:20)
[2019-03-14] MEDS ORDERED: PNEUMOCOCCAL VACCINE POLYVALENT 23 MCG/0.5 ML VIAL IM SCH (14:00)
[2019-03-14] MEDS ORDERED: POTASSIUM CHLORIDE 20MEQ/100ML 100 ML IV ONE (15:00)
[2019-03-14] MEDS: IBUPROFEN 800MG/ 250ML 800 MG in SODIUM CHLORIDE 0.9% 250ML 250 ML IV PRN (18:08)
--- NOTE | 2019-03-14 19:05 | NUR ---
Report given to oncoming nurse of patient's status. Resting in bed, side rails upx2, call light within reach. No s/s of acute distress noted.
[2019-03-14] MEDS: SODIUM CHLORIDE 0.9% 1000ML 1,000 ML IV SCH (22:00)
[2019-03-15] VITALS (8 sets, daily range): BP systolic 131–181; BP diastolic 74–86
[2019-03-15] MEDS: METRONIDAZOLE 500MG/NS 100ML 100 ML IV SCH ×3 (05:00→21:09)
[2019-03-15 05:13] LABS: BASOPHILS % 0.4 % (0.0-1.0); EOSINOPHILS # (AUTO) 0.2 (0.0-0.4); EOSINOPHILS % 4.2 % (0.0-6.0); HEMATOCRIT 32.1 % (34.2-44.1); HEMOGLOBIN 10.9 g/dL (12.0-16.0); LYMPHOCYTES # (AUTO) 0.8 (1.0-3.2); LYMPHOCYTES % 14.7 % (18.0-39.1); MEAN CORPUSCULAR HEMOGLOBIN 29.2 pg (28-32); MEAN CORPUSCULAR VOLUME 86.1 fL (81-99); MONOCYTES # (AUTO) 0.7 (0.2-0.8); MONOCYTES % 13.5 % (4.4-11.3); NEUTROPHILS # (AUTO) 3.5 (2.1-6.9); NEUTROPHILS % 66.6 % (38.7-80.0); PLATELET COUNT 179 x10e3/uL (140-360); RED BLOOD COUNT 3.73 x10e6/uL (3.6-5.1); RED CELL DISTRIBUTION WIDTH 12.8 % (11.7-14.4)
[2019-03-15 05:32] LABS: ANION GAP 14.1 mmol/L (8-16); BLOOD UREA NITROGEN 10 mg/dL (7-26); BUN/CREATININE RATIO 15 (6-25); CALCIUM 8.9 mg/dL (8.4-10.2); CARBON DIOXIDE 25 mmol/L (22-29); CHLORIDE 103 mmol/L (98-107); CREATININE, SERUM 0.66 mg/dL (0.57-1.11); EST GLOMERULAR FILTRATION RATE > 60 ML/MIN (60-); GLUCOSE 164 mg/dL (74-118); POTASSIUM 3.1 mmol/L (3.5-5.1); SODIUM 139 mmol/L (136-145)
[2019-03-15] MEDS: PIPER-TAZ 3.375 GM / NS 50ML IV SCH ×5 (06:00→23:06)
[2019-03-15] MEDS: ONDANSETRON HCL INJ 2MG/ML 2ML 2 MG/ML VIAL IV PRN ×3 (06:05→21:24)
[2019-03-15] MEDS: MORPHINE SULFATE INJ 4 MG/ML INJ 1ML IV PRN ×3 (06:05→21:24)
--- NOTE | 2019-03-15 07:25 | NUR ---
PATIENT ASSISTED TO THE RESTROOM AND BACK TO BED. NO COMPLAIN VOICED, CALL LIGHT AT REACH.
[2019-03-15] MEDS: FLUTICASONE PROPIONATE NASAL SPRAY NS SCH (09:09)
[2019-03-15] MEDS: FAMOTIDINE 20 MG/2 ML VIAL IV SCH ×2 (09:09→17:21)
--- NOTE | 2019-03-15 11:27 | NUR ---
PATIENT SITTING AT BEDSIDE TALKING ON THE PHONE. BED IN LOWER POSITION, CALL LIGHT AY REACH.
[2019-03-15] MEDS: SODIUM CHLORIDE 0.9% 1000ML 1,000 ML IV SCH (12:26)
[2019-03-15] MEDS ORDERED: DEXTROSE 50% SYRINGE 50 ML IV PRN (12:30)
[2019-03-15] MEDS ORDERED: POTASSIUM CHLORIDE 20 MEQ TAB CR PO ONE (12:30)
--- NOTE | 2019-03-15 15:35 | NUR ---
PATIENT NOTED WITH BLOOD SUGAR OF 189, NO SLIDING SCALE AVAILABLE. MD NOTIFIED, NEW ORDER RECEIVED.
[2019-03-15] MEDS: INSULIN REGULAR, HUMAN 100 UNIT/1 ML 3ML VIAL SQ SCH ×2 (16:30→20:14)
[2019-03-15] MEDS: METOPROLOL SUCCINATE 25 MG TAB XL PO SCH (17:21)
[2019-03-16] VITALS (8 sets, daily range): BP systolic 146–166; BP diastolic 72–81
[2019-03-16 03:29] LABS: BASOPHILS % 0.7 % (0.0-1.0); EOSINOPHILS # (AUTO) 0.3 (0.0-0.4); HEMATOCRIT 30.7 % (34.2-44.1); HEMOGLOBIN 10.5 g/dL (12.0-16.0); LYMPHOCYTES # (AUTO) 1.1 (1.0-3.2); LYMPHOCYTES % 20.8 % (18.0-39.1); MEAN CORPUSCULAR HEMOGLOBIN 29.3 pg (28-32); MEAN CORPUSCULAR HGB CONC 34.2 g/dL (31-35); MEAN CORPUSCULAR VOLUME 85.8 fL (81-99); MONOCYTES # (AUTO) 0.7 (0.2-0.8); MONOCYTES % 12.3 % (4.4-11.3); NEUTROPHILS # (AUTO) 3.3 (2.1-6.9); NEUTROPHILS % 60.1 % (38.7-80.0); PLATELET COUNT 182 x10e3/uL (140-360); RED BLOOD COUNT 3.58 x10e6/uL (3.6-5.1)
[2019-03-16 03:47] LABS: ANION GAP 13.1 mmol/L (8-16); BLOOD UREA NITROGEN 7 mg/dL (7-26); BUN/CREATININE RATIO 11 (6-25); CALCIUM 8.5 mg/dL (8.4-10.2); CARBON DIOXIDE 26 mmol/L (22-29); CHLORIDE 104 mmol/L (98-107); CREATININE, SERUM 0.65 mg/dL (0.57-1.11); EST GLOMERULAR FILTRATION RATE > 60 ML/MIN (60-); GLUCOSE 171 mg/dL (74-118); POTASSIUM 3.1 mmol/L (3.5-5.1); SODIUM 140 mmol/L (136-145)
[2019-03-16] MEDS: METRONIDAZOLE 500MG/NS 100ML 100 ML IV SCH ×2 (05:00→15:00)
[2019-03-16] MEDS: PIPER-TAZ 3.375 GM / NS 50ML IV SCH ×3 (05:45→17:57)
[2019-03-16] MEDS: LEVOTHYROXINE SODIUM 50 MCG TAB PO SCH (07:07)
--- NOTE | 2019-03-16 07:25 | NUR ---
PATIENT IN BED WITH HEAD OF BED ELEVATED WATCHING TV, NO COMPLAIN VOICED. ALL PERSONAL ITEMS CLOSE TO PATIENT. BED IN LOWER POSITION, CALL LIGHT AT REACH.
[2019-03-16] MEDS: INSULIN REGULAR, HUMAN 100 UNIT/1 ML 3ML VIAL SQ SCH ×4 (07:30→21:00)
[2019-03-16] MEDS ORDERED: METOPROLOL SUCCINATE 25 MG TAB XL PO SCH (09:00)
[2019-03-16] MEDS ORDERED: CEFTRIAXONE SOD 1 GM/NS 50 ML 50 ML IV SCH (09:30)
[2019-03-16] MEDS ORDERED: ACETAMINOPHEN/CODEINE 300MG - 30MG TAB PO PRN (09:30)
[2019-03-16] MEDS ORDERED: POTASSIUM CHLORIDE 20 MEQ TAB CR PO ONE (09:30)
[2019-03-16] MEDS: FAMOTIDINE 20 MG/2 ML VIAL IV SCH ×2 (09:36→17:21)
[2019-03-16] MEDS: FLUTICASONE PROPIONATE NASAL SPRAY NS SCH (09:36)
[2019-03-16] MEDS: AMLODIPINE BESYLATE 10 MG TAB PO SCH (09:36)
[2019-03-16] MEDS: METOPROLOL SUCCINATE 25 MG TAB XL PO SCH (09:37)
--- NOTE | 2019-03-16 11:30 | NUR ---
PATIENT ASSISTED WITH SHOWER, LINEN CHANGED. BED IN LOWER POSITION, CALL LIGHT AT REACH.
--- NOTE | 2019-03-16 14:00 | NUR ---
DR VALVERDE CAME IN TO SEE PATIENT, SYSTEM DOWN AT THAT TIME, HE WAS UNABLE TO ACCESS PATIENT INFORMATION. NO NEW ORDER RECEIVED.
--- NOTE | 2019-03-16 14:02 | Consultation ---
DATE OF CONSULTATION: This patient, who was seen and examined. Chart reviewed. REASON FOR CONSULTATION: Bacteremia, UTI. The computer system is down now, so we have no access to any of the lab or her notes, etc. HISTORY OF PRESENT ILLNESS: The patient is a very pleasant 68-year-old female, who comes into the hospital because of fever, chills, and abdominal pain. Apparently, the patient has been sick for 8 weeks on and off with abdominal pain in the right upper quadrant, got progressively worse and came here. She was diagnosed with UTI and E. coli bacteremia. She is on Zosyn and Flagyl. She is telling me she is feeling better, but her pain is still. The patient is complaining of pain in the right upper quadrant on and off, but today is first day of eating. She has been seen by Dr. Boothe, Surgery and the plan for her for possibility of cholecystectomy elective because of sluggish, but I do not have any access to her laboratory data or radiation at the present time. PAST MEDICAL HISTORY: Obesity and hypertension. PAST SURGICAL HISTORY: Denies. ALLERGIES: NKA. SOCIAL HISTORY: There is no smoking, drug abuse, or alcohol abuse. FAMILY HISTORY: Otherwise noncontributory. REVIEW OF SYSTEMS: HEENT: There is no headache, visual changes, or hearing changes. GI: There is no nausea, no vomiting, no diarrhea. CARDIAC: There is no arrhythmia. NEURO: No seizure activity. SKIN: There is no rash. At the present time, all her symptoms are within normal limits. PHYSICAL EXAMINATION: GENERAL: She is currently alert and oriented. Does not seem to be in acute distress. VITAL SIGNS: Stable, currently afebrile. HEENT: She is not icteric. NECK: Supple. CHEST: Clear. HEART: S1 and S2. No S3, S4, or murmur. ABDOMEN: Soft. Bowel sounds present. She did have right upper quadrant discomfort. EXTREMITIES: No edema. IMPRESSION: Sepsis, present on admission; bacteremia Escherichia coli, present on admission; urinary tract infection, concerned about cholecystitis. The patient is tender in the right upper quadrant. We will discuss with Surgery. I do not have an access to the cultures yet. Continue with Zosyn. Can discontinue Flagyl. We will modify after the culture and sensitivity. Plan on 14 days of antibiotic. Discussed with the patient. Clinically, she is better. I will have to reassess the patient again later day and access laboratory data to give a better educated recommendation. MD RICKEY Zelaya/HARSHAL /[id number]
[2019-03-17] VITALS: BP 143/70
[2019-03-17] MEDS: PIPER-TAZ 3.375 GM / NS 50ML IV SCH ×2 (01:15→06:04)
[2019-03-17] MEDS: METRONIDAZOLE 500MG/NS 100ML 100 ML IV SCH ×2 (01:19→06:04)
[2019-03-17 04:05] VITALS: BP 141/65
[2019-03-17 04:08] LABS: BASOPHILS # (AUTO) 0.1 (0.0-0.1); BASOPHILS % 0.8 % (0.0-1.0); EOSINOPHILS # (AUTO) 0.2 (0.0-0.4); EOSINOPHILS % 3.8 % (0.0-6.0); HEMOGLOBIN 11.1 g/dL (12.0-16.0); LYMPHOCYTES # (AUTO) 1.3 (1.0-3.2); LYMPHOCYTES % 20.5 % (18.0-39.1); MEAN CORPUSCULAR HEMOGLOBIN 29.2 pg (28-32); MEAN CORPUSCULAR HGB CONC 33.6 g/dL (31-35); MEAN CORPUSCULAR VOLUME 86.8 fL (81-99); MONOCYTES # (AUTO) 0.7 (0.2-0.8); MONOCYTES % 11.6 % (4.4-11.3); NEUTROPHILS # (AUTO) 3.9 (2.1-6.9); NEUTROPHILS % 61.3 % (38.7-80.0); PLATELET COUNT 215 x10e3/uL (140-360)
[2019-03-17 04:21] LABS: ANION GAP 15.4 mmol/L (8-16); BLOOD UREA NITROGEN 10 mg/dL (7-26); BUN/CREATININE RATIO 14 (6-25); CARBON DIOXIDE 26 mmol/L (22-29); CHLORIDE 105 mmol/L (98-107); CREATININE, SERUM 0.71 mg/dL (0.57-1.11); EST GLOMERULAR FILTRATION RATE > 60 ML/MIN (60-); GLUCOSE 192 mg/dL (74-118); POTASSIUM 3.4 mmol/L (3.5-5.1); SODIUM 143 mmol/L (136-145)
[2019-03-17] MEDS: LEVOTHYROXINE SODIUM 50 MCG TAB PO SCH (06:04)
--- NOTE | 2019-03-17 07:01 | NUR ---
Patient awake in room, reports no pain or discomfort at this time. Antibiotics being administered via RFA PIV. Bed low, side rails up, wheels locked and call light within reach.
[2019-03-17] MEDS: INSULIN REGULAR, HUMAN 100 UNIT/1 ML 3ML VIAL SQ SCH (07:30)
[2019-03-17] MEDS: FLUTICASONE PROPIONATE NASAL SPRAY NS SCH (07:58)
[2019-03-17] MEDS: FAMOTIDINE 20 MG/2 ML VIAL IV SCH (07:59)
[2019-03-17] MEDS: ONDANSETRON HCL INJ 2MG/ML 2ML 2 MG/ML VIAL IV PRN (08:05)
[2019-03-17 08:10] VITALS: BP 180/80
[2019-03-17] MEDS: AMLODIPINE BESYLATE 10 MG TAB PO SCH (08:22)
[2019-03-17] MEDS: METOPROLOL SUCCINATE 25 MG TAB XL PO SCH (08:22)
[2019-03-17 08:27] VITALS: BP 180/80
[2019-03-17] MEDS ORDERED: KEFLEX500 MG PO (09:34)
[2019-03-17] MEDS ORDERED: ZOFRAN4 MG PO (09:41)
[2019-03-17] MEDS ORDERED: ULTRAM 50MG50 MG PO (09:41)
[2019-03-17] MEDS ORDERED: POTASSIUM CHLORIDE 20 MEQ TAB CR PO NR (10:00)
[2019-03-17 10:25] VITALS: BP 167/83
--- NOTE | 2019-03-21 11:08 | Discharge Summary ---
ADMISSION DIAGNOSES: 1. Gallbladder sludge. 2. Type 2 diabetes. 3. Hypertension. 4. Hyperlipidemia. 5. Hypothyroidism. 6. Obesity with a BMI of 39.9. 7. Urinary tract infection present on admission. DISCHARGE DIAGNOSES: 1. Gallbladder sludge. 2. Type 2 diabetes. 3. Hypertension. 4. Hyperlipidemia. 5. Hypothyroidism. 6. Obesity with a BMI of 39.9. 7. Urinary tract infection present on admission. 8. Escherichia coli bacteremia present on admission. 9. Rule out flu. 10. Rule out group A Strep plus Escherichia coli urinary tract infection present on admission. HISTORY: Type 2 diabetes, hyperlipidemia, hypothyroidism, hypertension. SURGICAL HISTORY: Hysterectomy, bilateral shoulder replacement. FAMILY HISTORY: Unknown as the patient was adopted. SOCIAL HISTORY: Noncontributory. HOSPITAL COURSE: A 68-year-old female admits with complaints of sharp, constant epigastric back pain that radiates to the right upper quadrant and flank. Pain worsens with greasy food. She has had associated nausea and vomiting and a fever of 100.4. She denies diarrhea and sick contacts. On admission, the patient had a temperature of 104.2 and her white blood cell count was within normal limits. Chest x-ray showed enlargement of central pulmonary vasculature, which may indicate pulmonary hypertension. No acute cardiopulmonary abnormality. The patient then had a HIDA scan that showed gallbladder dyskinesia. Surgery was consulted, but the surgery was put off for an outpatient procedure as the patient was continuing to tolerate diet. The patient's urine culture came back positive for Escherichia coli and due to the temperature, blood cultures were drawn which also came back for Escherichia coli. The patient was on Zosyn during hospitalization and was switched to Keflex for 2 weeks per Infectious Disease. Vital signs stable. The patient afebrile. The patient is tolerating diet and no longer having abdominal pain. She received a prescription for Keflex, pain medicine, and Zofran p.r.n. Dictated by Tamanna Dukes, LIAM David Simms MD SHYAM/MODL /[id number]
== END 2019-03-17 10:59 | disposition home or self-care (01) | DRG 872 ==
LOC: ER 09:16 → ERHOLD 11:52 → MED/SURG2 12:18
PROVIDERS: ADMIT Internal Medicine; ATTEND Internal Medicine
DX: A41.51 Sepsis due to Escherichia coli [E. coli] (principal); N30.00 Acute cystitis without hematuria; K82.8 Other specified diseases of gallbladder; R65.20 Severe sepsis without septic shock; I50.9 Heart failure, unspecified; E11.9 Type 2 diabetes mellitus without complications; E03.9 Hypothyroidism, unspecified; Z82.49 Family history of ischemic heart disease and other diseases of the circulatory system; E78.5 Hyperlipidemia, unspecified; Z96.612 Presence of left artificial shoulder joint; Z96.611 Presence of right artificial shoulder joint; E66.9 Obesity, unspecified; Z68.39 Body mass index [BMI] 39.0-39.9, adult; E87.6 Hypokalemia; K81.1 Chronic cholecystitis; I11.0 Hypertensive heart disease with heart failure; Z79.4 Long term (current) use of insulin
CPT/HCPCS: 36415; 71045; 76705; 78227; 80048; 80053; 80061; 80076; 81001; 82150; 82550; 82553; 82948; 83036; 83518; 83605; 83690; 84443; 84484; 85025; 85610; 85730; 87040; 87070; 87071; 87086; 87186; 87205; 87400; 90732; 93005; 99285; A9537; J2270; J2405; J2543; J3480; J7030; J7050

== ENCOUNTER → 2019-03-31 | Day surgery (SDC) | payer OTHER ==
[~2019-03-31] MED LIST: AMLODIPINE BESY10 MG PO; AVALIDE 150-121 EACH PO; BASAGLAR K100 UNIT/1 SQ; BIOTIN300 MCG PO; BUPIVACAINE 0.25%/EPI 30ML SDV INJ ONE; CRESTOR10 MG PO; DEXAMETHASONE SOD PHOS INJ 4 MG/ML VIAL ONE; FENTANYL CITRATE/PF 100MCG/2 ML INJ ONE; GLYCOPYRROLATE INJ 0.2 MG/ML VIAL ONE; KEFLEX500 MG PO; KETOROLAC TROMETHAMINE 30 MG/ML VIAL ONE; LEVOTHYROXINE50 MCG PO; LIDOCAINE HCL 2% LOCAL INJ 5 ML SDV VIAL INJ ONE; METFORMIN HCL500 MG PO; METOPROLOL SUCC25 MG PO; MIDAZOLAM HCL 2 MG/2 ML VIAL ONE; NEOSTIGMINE 1 MG/ML 10ML VIAL ONE; NORTRIPTYLINE H10 MG PO; NOVOLOG100 UNIT/1 SQ; NOVOLOG100 UNITS1; OMEPRAZOLE40 MG PO; ONDANSETRON HCL INJ 2MG/ML 2ML 2 MG/ML VIAL ONE; PHENYLEPHRINE HCL 1% 10 MG/ML VIAL ONE; PROPOFOL IV EMULSION 10 MG/ML 20 ML VIAL ONE; ROCURONIUM BROMIDE 10 MG/ML 5ML VIAL ONE; SEVOFLURANE INHAL SOLN 250 ML PEN BTL ONE; ULTRAM 50MG50 MG PO; VITAMIN B-121000 MCG PO; WOMEN'S DAILY1 EAC2 PO; ZOFRAN4 MG PO
[2019-03-31 15:55] VITALS: BP 127/71
--- NOTE | 2019-03-31 21:33 | Operative Report ---
DATE OF PROCEDURE: 03/31/2019 SURGEON: Robinson Boothe MD PREOPERATIVE DIAGNOSIS: Cholecystitis. POSTOPERATIVE DIAGNOSIS: Cholecystitis and cholelithiasis. OPERATION PERFORMED: Laparoscopic cholecystectomy. PRINTER TECHNICIAN: CAMERON Talbert. ANESTHESIA: General. COMPLICATIONS: None. ESTIMATED BLOOD LOSS: Minimal. DESCRIPTION OF PROCEDURE: The patient lying in bed in the supine position under good general endotracheal anesthesia, the abdomen was prepped with Betadine solution and draped in the usual manner. A Veress needle was introduced into the umbilicus and pneumoperitoneum was established without any difficulty. An 11 mm trocar was placed into the umbilicus and a 10 mm video laparoscope was placed into the intraabdominal cavity. Under direct vision, three 5 mm trocars were placed in the right subcostal region. Video laparoscopy at this point revealed a gallbladder that was tensely distended. The other positive finding was the fact that the patient had fatty infiltration of the liver and a very redundant left lobe of the liver, which required placement of an extra trocar in the left upper abdomen to be able to retract the redundant left lobe of the liver. The peritoneum overlying the neck of the gallbladder was then opened and the cystic duct was identified. The cystic duct was followed to its junction with the common duct. The cystic duct was then circumferentially dissected away from the common duct, doubly clipped and divided. The cystic artery was similarly doubly clipped and divided. The gallbladder was then slowly and carefully taken off the liver bed using the cautery scissors. The gallbladder was totally and completely removed from the liver bed, placed in a pouch and removed through the umbilical port. Video laparoscopy was then again carried out, the liver bed was found to be perfectly dry. All the excess fluid was aspirated. The pneumoperitoneum was evacuated and all the trocars were removed under direct vision. The midline fascia at the umbilicus was then closed with a [id number] of 0 Vicryl. All layers were infiltrated on the way out with solution of 0.25% Marcaine, subcutaneous tissue was approximated with 3-0 Vicryl and the skin was closed with subcuticular 5-0 Vicryl. Benzoin, Steri-Strips and Band-Aids were applied. The sponge, lap, and needle count was correct. The patient tolerated the procedure well and returned to the recovery room in stable condition. MD FRANCK Henry/HARSHAL /[id number]
== END | disposition home or self-care (01) ==
LOC: OR 10:13
PROVIDERS: ATTEND Surgery
DX: K80.10 Calculus of gallbladder with chronic cholecystitis without obstruction (principal); K76.0 Fatty (change of) liver, not elsewhere classified; E11.9 Type 2 diabetes mellitus without complications; I10 Essential (primary) hypertension; K21.9 Gastro-esophageal reflux disease without esophagitis; E78.5 Hyperlipidemia, unspecified; Z79.4 Long term (current) use of insulin; Z79.84 Long term (current) use of oral hypoglycemic drugs
CPT/HCPCS: 36415; 47562; 82948; 88304; C1766; J1100; J1885; J2001; J2250; J2370; J2405; J2704; J2710; J3010

== ENCOUNTER → 2020-06-03 | Outpatient (CLI) | payer MEDICARE ==
[~2020-06-03] MED LIST changes: -BUPIVACAINE 0.25%/EPI 30ML SDV INJ ONE; -DEXAMETHASONE SOD PHOS INJ 4 MG/ML VIAL ONE; -FENTANYL CITRATE/PF 100MCG/2 ML INJ ONE; -GLYCOPYRROLATE INJ 0.2 MG/ML VIAL ONE; -KETOROLAC TROMETHAMINE 30 MG/ML VIAL ONE; -LIDOCAINE HCL 2% LOCAL INJ 5 ML SDV VIAL INJ ONE; -MIDAZOLAM HCL 2 MG/2 ML VIAL ONE; -NEOSTIGMINE 1 MG/ML 10ML VIAL ONE; -ONDANSETRON HCL INJ 2MG/ML 2ML 2 MG/ML VIAL ONE; -PHENYLEPHRINE HCL 1% 10 MG/ML VIAL ONE; -PROPOFOL IV EMULSION 10 MG/ML 20 ML VIAL ONE; -ROCURONIUM BROMIDE 10 MG/ML 5ML VIAL ONE; -SEVOFLURANE INHAL SOLN 250 ML PEN BTL ONE
== END ==
LOC: MRI 09:51
PROVIDERS: ATTEND Family Medicine
DX: M23.92 Unspecified internal derangement of left knee (principal); M54.5 Low back pain; M51.36 Other intervertebral disc degeneration, lumbar region
CPT/HCPCS: 72148

== ENCOUNTER → 2020-07-04 | Outpatient (CLI) | payer MEDICARE | LOC: US 08:45 | PROVIDERS: ATTEND Family Medicine | DX: R10.31 Right lower quadrant pain (principal); I65.23 Occlusion and stenosis of bilateral carotid arteries; R09.89 Other specified symptoms and signs involving the circulatory and respiratory systems; R60.9 Edema, unspecified; E11.9 Type 2 diabetes mellitus without complications; I10 Essential (primary) hypertension; E78.2 Mixed hyperlipidemia | CPT/HCPCS: 76770; 93306; 93880; 93925; 93970 ==